=== PATIENT | female | born 1970 | race African-American/Black ===

== ENCOUNTER → 2017-08-26 | Outpatient (CLI) | payer OTHER ==
[~2017-08-26] MED LIST: BIOTCAP PO; CHOL5000 PO; FOLI400T PO; HYDR-3516 PO; IBUP-232 PO; LORA-392 PO; LORA-474 PO; METH2.5T PO; ORSYTAB PO; OXYC1TAB63 PO; PREN29TA PO; TOPA50TA7 PO; TOPI50TA4 PO; VICO7.5T PO
[2017-08-26 12:36] LABS: HEMOGLOBIN 11.1 GM/DL (11.6-15.3); MEAN CELL VOLUME 94.9 FL (80.0-100.0); MEAN CORPUSCULAR HEMOGLOBIN 31.9 PG (27.0-34.0); MEAN CORPUSCULAR HGB CONC 33.6 % (32.0-36.0); MEAN PLATELET VOLUME 6.4 FL (7.0-11.0); PLATELET COUNT 443 TH/MM3 (150-450); RED BLOOD COUNT 3.48 MIL/MM3 (4.00-5.30); RED CELL DISTRIBUTION WIDTH 13.2 % (11.6-17.2); WHITE BLOOD COUNT 7.3 TH/MM3 (4.0-11.0)
[2017-08-26 12:41] LABS: BACTERIA, URINE RARE /hpf; BILIRUBIN, URINE NEG (NEG); BLOOD, URINE MOD (NEG); GLUCOSE,URINE NEG (NEG); KETONE, URINE NEG (NEG); MUCUS URINE FEW /lpf (OCC); NITRITE,URINE NEG (NEG); PH, URINE 5.5 (5.0-8.5); SQUAMOUS EPITHELIAL CELL URINE <1 /hpf (0-5); URINE COLOR YELLOW (YELLW/STRAW); URINE LEUKOCYTE ESTERASE NEG (NEG)
[2017-08-26 12:56] LABS: BLOOD UREA NITROGEN 6 MG/DL (7-18); CALCIUM 8.8 MG/DL (8.5-10.1); CHLORIDE 101 MEQ/L (98-107); CREATININE 0.56 MG/DL (0.50-1.00); GLOMERULAR FILTRATION RATE 142 ML/MIN (>89); GLUCOSE,FASTING 84 MG/DL (74-99); SODIUM (NA) 134 MEQ/L (136-145)
== END ==
LOC: CPRE 11:38
PROVIDERS: ATTEND Obstetrics & Gynecology
DX: Z01.812 Encounter for preprocedural laboratory examination (principal); D25.2 Subserosal leiomyoma of uterus; D25.1 Intramural leiomyoma of uterus; N93.8 Other specified abnormal uterine and vaginal bleeding
CPT/HCPCS: 36415; 80048; 81001; 84703; 85027

== ENCOUNTER 2017-08-30 07:20 | Inpatient (IN) | payer OTHER ==
[~2017-08-30] VITALS: Ht 154.9 cm; Wt 61.1 kg
[~2017-08-30 07:20] MED LIST changes: -IBUP-232 PO; -OXYC1TAB63 PO
[2017-08-30] MEDS ORDERED: SODIUM CHLORID 0.9% 500 ML IV PRN (08:00)
[2017-08-30] MEDS ORDERED: POVIDONE IODINE 5% (ANTISEPSIS KIT) 4 APPLICATIONS EACH NARE PRN (08:00)
[2017-08-30] MEDS ORDERED: MAGNESIUM CITRATE SOLN 300 ML BTL PO ONE (08:00)
[2017-08-30] MEDS ORDERED: CHLORHEXIDINE GLUCONATE 2 % 1 PACK (2 CLOTHS) TOPICAL PRN (08:00)
[2017-08-30] MEDS ORDERED: ceFAZolin 2 GM PREMIX 50 ML IV SCH (08:00)
[2017-08-30] MEDS ORDERED: METOPROLOL TARTRATE 25 MG TAB PO PRN (08:00)
[2017-08-30] MEDS ORDERED: LACTATED RINGER'S 1000 ML IV PRN (08:00)
[2017-08-30] MEDS ORDERED: SUGAMMADEX SODIUM 200 MG/2 ML VIAL IV PUSH ONE (09:05)
[2017-08-30] MEDS ORDERED: ACETAMINOPHEN 1000 MG/100 ML 100 ML IV ONE (09:05)
[2017-08-30] MEDS ORDERED: LIDOCAINE 0.5%/EPINEPHrine 1:200,000 SOLN 50 ML VIAL ONE (09:20)
[2017-08-30] MEDS: LACTATED RINGER'S 1000 ML INJ 1,000 ML IV SCH ×2 (11:52→19:52)
[2017-08-30] MEDS ORDERED: PHENYLEPH/NS 1000 MCG/10 ML SYR IV ONE (12:00)
[2017-08-30] MEDS ORDERED: LACTATED RINGER'S 1000 ML INJ 1,000 ML IV ONE (12:00)
[2017-08-30] MEDS ORDERED: ACETAMINOPHEN 325 MG TAB PO PRN (12:00)
[2017-08-30] MEDS ORDERED: LIDOCAINE HCL 1% PF 5 ML SYRINGE OTHER ONE (12:00)
[2017-08-30] MEDS ORDERED: NALOXONE HCL 0.4 MG/ML AMP IV PUSH PRN (12:00)
[2017-08-30] MEDS ORDERED: ROCURONIUM INJ 50 MG/5 ML SYRINGE IV PUSH ONE (12:00)
[2017-08-30] MEDS ORDERED: ONDANSETRON HCL 4 MG/2 ML VIAL IV ONE (12:00)
[2017-08-30] MEDS ORDERED: ESMOLOL HCL 100 MG/10 ML VIAL IV ONE (12:00)
[2017-08-30] MEDS ORDERED: ONDANSETRON HCL 4 MG/2 ML VIAL IV PUSH PRN (12:00)
[2017-08-30] MEDS ORDERED: PROPOFOL 200 MG/20 ML AMP IV ONE (12:00)
[2017-08-30] MEDS ORDERED: SODIUM CHLORIDE 0.9% FLUSH 10 ML FLUSH IV FLUSH PRN (12:00)
[2017-08-30] MEDS ORDERED: diphenhydrAMINE HCL 50 MG/ML VIAL IV PUSH PRN (12:00)
[2017-08-30] MEDS ORDERED: DEXAMETHASONE SOD PHOS 4 MG/ML VIAL IV ONE (12:00)
[2017-08-30] MEDS ORDERED: MIDAZOLAM HCL 2 MG/2 ML VIAL ONE (12:21)
[2017-08-30] MEDS ORDERED: HYDROmorphone HCL PF 2 MG/ML VIAL ONE (12:21)
[2017-08-30] MEDS ORDERED: MORPHINE SULFATE 4 MG/ML INJ ONE (12:22)
[2017-08-30] MEDS: HYDROmorphone HCL PCA 6 MG/30 ML IV SCH ×2 (13:14→16:52)
[2017-08-30] MEDS ORDERED: DO NOT ADM ANY ANTICOAGULANT DRUGS PRN (13:15)
[2017-08-30 13:45] VITALS: BP 120/74; PULSE 90; RESP 10; TEMP 98.5; O2SAT 99
[2017-08-30 13:50] VITALS: RESP 18
[2017-08-30] MEDS: PCA - TOTAL MG DILAUDID DELIVERED PER SHIFT OTHER SCH ×2 (15:33→22:00)
[2017-08-30] MEDS: oxyCODONE/ACETAMINOPHEN 10 MG/325 MG TAB PO PRN ×2 (17:11→21:13)
[2017-08-30] MEDS ORDERED: ACETAMINOPHEN/HYDROcodone 325 MG/5 MG TAB PO PRN (17:15)
[2017-08-30 20:00] VITALS: BP 138/74; PULSE 78; RESP 20; TEMP 98.4; O2SAT 97
--- NOTE | 2017-08-30 20:37 | MP ---
cc: REECE MORENO DATE OF SURGERY 08/30/17 PREOPERATIVE DIAGNOSIS Large fibroid uterus, pelvic pain. POSTOPERATIVE DIAGNOSIS Large fibroid uterus, pelvic pain. PROCEDURE Examination under anesthesia, total abdominal hysterectomy, bilateral salpingectomy. SURGEON Dr. Kareem Moreno DIRECTOR OF INSTRUCTIONAL TECHNOLOGY Thomas Mayorga. ANESTHESIA General endotracheal anesthesia. FLUIDS 2000 mL crystalloid ESTIMATED BLOOD LOSS 500 mL URINE OUTPUT 200 mL clear yellow at the end of the procedure. FINDINGS Uterus was approximately 20 weeks in size, evidence of previous bilateral tubal ligation. Ovaries appeared normal. PROCEDURE IN DETAIL The patient was taken to the operating room where general anesthesia was found to be adequate. She was prepped and draped in the normal sterile fashion in the dorsal supine position. A vertical skin incision was made with a scalpel and carried down to the underlying layer of fascia. The fascia was nicked in the midline. The incision was extended superiorly and inferiorly. The rectus muscles were in the midline. The peritoneum was identified, grasped between two Alexandra clamps, elevated and entered sharply with Metzenbaum scissors. This incision was extended superiorly and inferiorly with good visualization of the bladder. The uterus was then identified. The round ligaments were clamped bilaterally with Alexandra clamps, transected and suture ligated. The bladder flap was then created using the Metzenbaum scissors and the bladder was gently dissected off the anterior surface of the uterus and cervix. The salpingectomy was then performed with the Bovie. The tubes were sent to pathology. The utero-ovarian ligaments were clamped x2 with Alexandra clamps, transected and suture ligated. The uterine arteries and the remaining broad ligaments were clamped with Nancie clamps and Trish clamps, transected and suture ligated down to the level of the cervix. The Trish clamps were then placed just below the cervix at the apex of the vagina. Arabella scissors were used to amputate the cervix from the vaginal cuff. The fundus of the uterus had been amputated from the cervix intraoperatively for better visualization. Interrupted sutures of 0 Vicryl were placed to close the apex of the vaginal cuff. Hemostasis was noted from all pedicles. Irrigation was performed, again hemostasis was noted. The instruments were removed from the abdominal cavity. The fascia was closed in two segments with one PDS. The skin was closed in a subcuticular fashion with 4-0 Monocryl. Steri-Strips were applied. A Primapore dressing was applied. The sponge, lap, needle and instrument counts were correct. The patient was awakened from anesthesia and transferred to recovery room in stable condition. Pathology was uterus, cervix and bilateral fallopian tubes. MD JANIS Bradshaw/ /12:03 PM /8:16 PM
[2017-08-30] MEDS: SODIUM CHLORIDE 0.9% FLUSH 10 ML FLUSH IV FLUSH SCH (21:00)
[2017-08-30] MEDS ORDERED: ZOLPIDEM TARTRATE 5 MG TAB PO PRN (21:00)
[2017-08-31] VITALS: BP 98/56; PULSE 63; RESP 16; TEMP 97.7; O2SAT 98
[2017-08-31] MEDS: LACTATED RINGER'S 1000 ML INJ 1,000 ML IV SCH ×3 (03:52→14:15)
[2017-08-31] MEDS: oxyCODONE/ACETAMINOPHEN 10 MG/325 MG TAB PO PRN ×5 (03:57→22:39)
[2017-08-31 04:00] VITALS: BP 108/70; PULSE 62; RESP 16; TEMP 98; O2SAT 95
[2017-08-31] MEDS: PCA - TOTAL MG DILAUDID DELIVERED PER SHIFT OTHER SCH (06:00)
[2017-08-31 06:01] LABS: AUTOMATED NEUTROPHIL # 5.8 TH/MM3 (1.8-7.7); BASOPHIL % 0.3 % (0.0-2.0); HEMATOCRIT 27.7 % (35.0-46.0); HEMOGLOBIN 9.3 GM/DL (11.6-15.3); LYMPH % 15.4 % (9.0-44.0); LYMPHOCYTE # 1.2 TH/MM3 (1.0-4.8); MEAN CELL VOLUME 93.9 FL (80.0-100.0); MEAN CORPUSCULAR HEMOGLOBIN 31.4 PG (27.0-34.0); MEAN CORPUSCULAR HGB CONC 33.4 % (32.0-36.0); MEAN PLATELET VOLUME 6.3 FL (7.0-11.0); MONO % 8.5 % (0.0-8.0); MONOCYTE # 0.7 TH/MM3 (0-0.9); NEUT % 75.8 % (16.0-70.0); PLATELET COUNT 491 TH/MM3 (150-450); RED BLOOD COUNT 2.95 MIL/MM3 (4.00-5.30); RED CELL DISTRIBUTION WIDTH 13.6 % (11.6-17.2); WHITE BLOOD COUNT 7.7 TH/MM3 (4.0-11.0)
[2017-08-31 06:16] LABS: CREATININE 0.36 MG/DL (0.50-1.00)
[2017-08-31] MEDS: HYDROmorphone HCL PCA 6 MG/30 ML IV SCH (06:40)
[2017-08-31] MEDS ORDERED: ACETAMINOPHEN/HYDROcodone 325 MG/5 MG TAB PO PRN (07:00)
[2017-08-31] MEDS ORDERED: oxyCODONE/ACETAMINOPHEN 10 MG/325 MG TAB PO PRN (07:00)
--- NOTE | 2017-08-31 07:58 | HHI.PR ---
Subjective Remarks Doing well, pain is somewhat controlled, eating well. Objective Vital Signs Vital Signs Date Time Temp Pulse Resp B/P (MAP) Pulse Ox O2 Delivery O2 Flow Rate FiO2 08/31/17 06:40 16 08/31/17 06:00 16 08/31/17 04:00 98.0 62 16 108/70 (83) 95 08/31/17 00:00 97.7 63 16 98/56 (70) 98 08/30/17 22:00 20 08/30/17 20:00 98.4 78 20 138/74 (95) 97 08/30/17 16:52 14 08/30/17 15:33 18 08/30/17 13:50 18 08/30/17 13:45 98.5 90 10 120/74 (89) 99 08/30/17 13:14 16 08/30/17 13:12 97.9 82 18 109/60 (76) 100 Nasal Cannula 2 08/30/17 12:45 80 18 116/58 (77) 100 Nasal Cannula 2 08/30/17 12:30 82 16 124/57 (79) 100 Nasal Cannula 2 08/30/17 12:14 97.9 86 16 120/85 (97) 100 Nasal Cannula 2 08/30/17 07:59 98.4 88 20 112/78 (89) 99 I/O 08/30/17 08/30/17 08/30/17 08/31/17 08/31/17 08/31/17 07:00 15:00 23:00 07:00 15:00 23:00 Intake Total 2000 ml Output Total 700 ml 800 ml 2100 ml Balance 1300 ml -800 ml -2100 ml Intake IV Total 2000 ml Output Urine Total 200 ml 800 ml 2100 ml Estimated Blood Loss 500 ml Result Diagram: 08/31/17 0507 08/31/17 0507 Objective Remarks Chest is clear, regular rate and rhythm. Abdomen is soft and non-distended. dressing is clean and dry. Ext no CCE. 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 Faviola Moreno MD Aug 31, 2017 07:58
[2017-08-31 08:00] VITALS: BP 113/71; PULSE 76; RESP 14; TEMP 98; O2SAT 99
[2017-08-31] MEDS ORDERED: KETOROLAC TROMETHAMINE 60 MG/2 ML (IM) VIAL IM PRN (08:00)
[2017-08-31] MEDS ORDERED: OXYC1TAB63 PO (08:02)
[2017-08-31] MEDS ORDERED: IBUP-232 PO (08:02)
--- NOTE | 2017-08-31 08:03 | HHI.DCPOC ---
Discharge Care Plan Your Health Problems Are: Pelvic pain Report Symptoms to Your Doctor -Temperature above 100.5 degrees -Redness, of incision or excessive or foul smelling drainage -Unusual pain or calf pain -Increased vaginal bleeding -Painful or difficulty urinating -Feelings of extreme sadness or anxiety after 2 weeks Goals to Promote Your Health * To prevent worsening of your condition and complications * To maintain your health at the optimal level Directions to Meet Your Goals Take your medications as prescribed Follow your dietary instruction Follow activity as directed Ensure plenty of rest for recovery Drink fluids for hydration Keep your appointments as scheduled Take your immunizations and boosters as scheduled If your symptoms worsen call your PCP, if no PCP go to Urgent Care Center or Emergency Room Smoking is Dangerous to Your Health. Avoid second hand smoke Call the 24-hour crisis hotline for domestic abuse at Faviola Moreno MD Aug 31, 2017 08:03
[2017-08-31] MEDS: SODIUM CHLORIDE 0.9% FLUSH 10 ML FLUSH IV FLUSH SCH (08:29)
[2017-08-31 12:30] VITALS: BP 96/60; PULSE 91; RESP 14; TEMP 97.8; O2SAT 98
[2017-08-31] MEDS: DOCUSATE SODIUM 100 MG CAP PO PRN (14:06)
[2017-08-31 16:51] VITALS: BP 98/67; PULSE 87; RESP 16; TEMP 97.4; O2SAT 99
[2017-08-31] MEDS: IBUPROFEN 600 MG TAB PO PRN (18:00)
[2017-08-31 20:30] VITALS: BP 96/67; PULSE 87; RESP 15; TEMP 98.1
[2017-09-01] MEDS: oxyCODONE/ACETAMINOPHEN 10 MG/325 MG TAB PO PRN ×2 (07:28→11:30)
[2017-09-01 08:00] VITALS: BP 105/69; PULSE 89; RESP 14; TEMP 98
[2017-09-01] MEDS: DOCUSATE SODIUM 100 MG CAP PO PRN (08:15)
[2017-09-01] MEDS: IBUPROFEN 600 MG TAB PO PRN (08:15)
--- NOTE | 2017-09-01 11:30 | HHI.PR ---
Subjective Remarks POD 2 s/p open JOSE through midline Still moderately painful but improved and has good support at home reports moving bowels and bladder well eating full diet ambulating Objective Vital Signs Vital Signs Date Time Temp Pulse Resp B/P (MAP) Pulse Ox O2 Delivery O2 Flow Rate FiO2 09/01/17 08:00 98.0 89 14 105/69 (81) 08/31/17 20:30 98.1 87 15 96/67 (77) 08/31/17 16:51 97.4 87 16 98/67 (77) 99 08/31/17 12:30 97.8 91 14 96/60 (72) 98 I/O 08/31/17 08/31/17 08/31/17 09/01/17 09/01/17 09/01/17 07:00 15:00 23:00 07:00 15:00 23:00 Output Total 2100 ml 300 ml 450 ml Balance -2100 ml -300 ml -450 ml Output Urine Total 2100 ml 300 ml 450 ml # Voids 1 1 Result Diagram: 08/31/17 0507 08/31/17 0507 Objective Remarks Chest is clear, regular rate and rhythm. Abdomen is soft and non-distended. incision clean and dry with steristrips Ext no CCE. 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 POD 2 09/01/17 11:00 ready for discharge home with percocet instructions reviewed RTO to see Dr. ezio Louis,Teresa Schwarz MD Sep 01, 2017 11:30
== END 2017-09-01 12:35 | disposition home or self-care (01) | DRG 743 ==
LOC: HSDC 07:20 → HSDI 11:56 → H1EA 13:15
PROVIDERS: ADMIT Obstetrics & Gynecology; ATTEND Obstetrics & Gynecology
PROC: 0UT70ZZ Resection of Bilateral Fallopian Tubes, Open Approach (ICD-10-PCS; 2017-08-30)
PROC: 0UTC0ZZ Resection of Cervix, Open Approach (ICD-10-PCS; 2017-08-30)
PROC: 0UT90ZZ Resection of Uterus, Open Approach (ICD-10-PCS; principal; 2017-08-30 09:27)
DX: D25.9 Leiomyoma of uterus, unspecified (principal); R10.2 Pelvic and perineal pain
CPT/HCPCS: 82565; 85025; 86850; 86900; 86901; 88307; 94150; J0131; J0690; J1100; J1170; J1885; J2250; J2270; J2370; J2405; J3010; J7120